=== PATIENT | female | born 2000 | race Caucasian/White ===

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

== ENCOUNTER 2021-04-20 17:35 | Outpatient (REF) | payer OTHER, SELFPAY ==
[2021-04-21 13:12] LABS: BV Int Neg Control Negative (Negative); BV Int Pos Control Positive (Positive)
== END 2021-04-20 17:36 | disposition home or self-care (01) ==
LOC: HO.LNP 17:35
PROVIDERS: Visit Provider Physician Assistant
DX: N89.8 Other specified noninflammatory disorders of vagina (principal)
CPT/HCPCS: 87480; 87510; 87660

== ENCOUNTER 2021-08-24 17:57 | Outpatient (REF) | payer OTHER, SELFPAY ==
[2021-08-24 18:52] LABS: Influenza A PCR NEGATIVE (Negative); Influenza B PCR NEGATIVE (Negative); Resp Syncy Virus RNA Qual PCR NEGATIVE (Negative); SARS COV2 PCR INHOUSE POSITIVE (Negative)
== END 2021-08-24 17:58 | disposition home or self-care (01) ==
LOC: HO.LNP 17:57
PROVIDERS: Visit Provider Pediatrics
DX: Z20.822 Contact with and (suspected) exposure to COVID-19 (principal); R09.89 Other specified symptoms and signs involving the circulatory and respiratory systems
CPT/HCPCS: 0241U

== ENCOUNTER 2021-09-27 13:46 | Outpatient (REF) | payer OTHER, SELFPAY ==
[2021-09-27 15:08] LABS: Syphilis Screen Nonreactive (Nonreactive)
[2021-09-28 07:07] LABS: HIV AB/AG Nonreactive (Nonreactive); HIV Num 1 0.06 S/CO (0.00-0.99)
== END 2021-09-27 13:47 | disposition home or self-care (01) ==
LOC: HO.LAB 13:46
PROVIDERS: PCP Physician Assistant; Visit Provider Pediatrics
DX: Z11.4 Encounter for screening for human immunodeficiency virus [HIV] (principal); Z72.51 High risk heterosexual behavior
CPT/HCPCS: 36415; 86780; 87389

== ENCOUNTER 2021-10-06 13:14 | Outpatient (REF) | payer OTHER, SELFPAY ==
[2021-10-06 15:51] LABS: CT PCR NOT DETECTED (Not Detect.); NG PCR NOT DETECTED (Not Detect.)
== END 2021-10-06 13:15 | disposition home or self-care (01) ==
LOC: HO.LAB 13:14
PROVIDERS: PCP Physician Assistant; Visit Provider Pediatrics
DX: Z11.3 Encounter for screening for infections with a predominantly sexual mode of transmission (principal)
CPT/HCPCS: 87491; 87591

== ENCOUNTER 2021-11-15 11:04 | Emergency (ER) | payer OTHER, SELFPAY ==
[2021-11-15 12:01] VITALS: BP 115/83; PULSE 75; RESP 14; TEMP 36.3; O2SAT 100; BMI 24.7
[2021-11-15 12:19] LABS: Appearance Urine Clear; Color Urine Yellow; Glucose Urine UA Negative (Negative); Leukocyte Esterase Urine Small (1+) (Negative); Nitrite Urine Negative (Negative); Urine Blood Negative (Negative); Urine Ketones Negative (Negative); Urine Protein Negative (Neg-Trace)
[2021-11-15 12:21] LABS: UPreg QC Valid YES; Urine Pregnancy NEGATIVE (NEGATIVE)
[2021-11-15 12:40] LABS: Bacteria Urine None Seen (None Seen); Hyaline Casts Urine 0-2 /LPF (0-2); RBC Urine 0-2 /HPF (0-2); UACC Culture Trigger YES; WBC Urine 0-5 /HPF (0-5)
--- NOTE | 2021-11-15 13:33 | ED_ITS ---
HPI - Female Genitourinary General Chief complaint: Abdominal Pain Stated complaint: pelvic pain vaginal bleeding Time Seen by Provider: 11/15/21 13:21 Source: patient Mode of arrival: ambulatory Limitations: no limitations History of Present Illness HPI Narrative: Patient presents emergency department for evaluation of pelvic discomfort. She states that 1.5 weeks ago was the start of her last menstrual period, she blood for 5 days which is slightly shorter than usual typically she bleeds for 1 week. About 4 days later she began having bleeding again for a couple of days. States that it is not usual for her to have bleeding between menstrual cycles. Uncertain whether she may be or not. She is also reporting pelvic discomfort. Feels as though she has a yeast infection which she has been james ting with boric acid, however states that this typically does not resolve her symptoms for greater than 2 days. Denies any odor, no concern for sexually transmitted infections, however she does report a new sexual partner within the past 3 weeks, and had testing 1 month ago. Denies fevers, chills, abdominal pain, nausea, vomiting constipation, diarrhea, flank pain, back pain, Related Data Previous Rx's Medication Instructions Recorded fluticasone propionate 50 1 spray intranasal DAILY 30 days 08/24/21 mcg/actuation nasal #15.8 mL spray,suspension (Children's Flonase Allergy Relief) fluconazole 150 mg tablet 150 mg PO Q3D 2 doses #2 tabs 11/15/21 (Diflucan) Allergies Allergy/AdvReac Type Severity Reaction Status Date / Time No Known Allergies Allergy Verified 08/24/21 16:16 Review of Systems Review of Systems: Constitutional: No weight loss, fever, chills, weakness or fatigue. Skin: No rash or itching. Cardiovascular: No chest pain, chest pressure or chest discomfort. No palpitations or pedal edema. Respiratory: No shortness of breath, cough or sputum production. Gastrointestinal: No nausea, vomiting or diarrhea. No abdominal pain Genitourinary: No burning micturition. No urinary frequency or incontinence. Positive pelvic pain. Musculoskeletal: No muscle pain, back pain, joint pain or stiffness. Psychiatric: No depression or anxiety. Yes all other systems are reviewed and are negative PMFSH Past Medical History Attestation statement: The following information was validated with the patient. Source: old records reviewed Medical History No pertinent past medical history Surgical History No pertinent past surgical history Family History Family History Mother Substance abuse Social History Social History Household Members: Family Housing: House Advance Directives: No Advance Directives Information Provided: No Cognitive needs: No Hearing needs: No Vision needs: No Physical Exam Vital Signs: Vital Signs: Last Vital Signs Temp 97.4 F 11/15/21 12:01 Pulse 75 11/15/21 12:01 Resp 14 11/15/21 12:01 BP 115/83 11/15/21 12:01 Pulse Ox 100 11/15/21 12:01 O2 Del Method 11/15/21 12:01 BMI result Body Mass Index 24.7 Appearance: Alert.?Oriented to person, place and time. No acute distress.?Normal affect. Eyes: Pupils equal, round and reactive to light.? ENT: Pharynx normal.?? Neck: Normal inspection.? Neck supple.?? CVS: Heart sounds normal. Normal heart rate and rhythm.? Pulses normal.?? Respiratory: No respiratory distress.? Lung sounds clear to auscultation bilaterally?? Abdomen: Soft and non-tender. Normoactive bowel sounds. Genitourinary: Declined pelvic examination Skin: Skin warm and dry.? Normal skin color.? Extremities: No lower extremity edema.? Neuro: Moves all extremities spontaneously. Sensation intact bilaterally. Ambulates with normal steady gait. Course Course Course Narrative: Patient is a 21-year-old female with no significant past medical history. She is overall well-appearing, abdominal exam is benign. Vital signs are stable, afebrile no tachycardia. Presents emergency department for evaluation of pelvic discomfort, irregular menstrual bleeding, concern for yeast infection. Exact date of last menstrual period is unknown but was at the beginning of this month. Urinalysis obtained today not consistent with urinary tract infection, no microscopic hematuria. Urine as well as serum hCG are negative. Expresses low concern for sexually transmitted infection, would like to be tested, but declines treatment at this time. Reports persistent symptoms of a vaginal yeast infection unrelieved with boric acid, discussed plan of care for discharge home with prescription for Diflucan 1 or 2 doses as needed for persistent symptoms. 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 Reviewed worrisome signs and symptoms to return back to the emergency department for. Advised repeating test in 2-3 weeks. Patient verbalized understanding, was discharged home in stable condition. MDM - Female Genitourinary Medical Records Attestation: I reviewed the patient's medical records. Lab Data Attestation: I reviewed the patient's lab results. Labs: Lab Results 11/15/21 11/15/21 11/15/21 Range/Units 12:07 12:07 13:56 Urine Color Yellow Urine Appearance Clear Urine pH 6.0 (5.0-9.0) Ur Specific [place] 1.020 (1.005-1.025) Urine Protein Negative (Neg-Trace) mg/dL Urine Glucose (UA) Negative (Negative) mg/dL Urine Ketones Negative (Negative) mg/dL Urine Blood Negative (Negative) Urine Nitrite Negative (Negative) Ur Leukocyte Esterase Small (1+) H (Negative) Urine RBC 0-2 (0-2) /HPF Urine WBC 0-5 (0-5) /HPF Ur Squamous Epith Cells 6-10 (0-2) /HPF Urine Bacteria None Seen (None Seen) Hyaline Casts 0-2 (0-2) /LPF Urine Test NEGATIVE (NEGATIVE) Chlam trachomat DNA PCR NOT DETECTED (Not Detect.) N.gonorrhoeae DNA (PCR) NOT DETECTED (Not Detect.) Discharge Plan Discharge Clinical Impression: Pelvic pain Patient Disposition: Home, Self-Care Instructions: Pelvic Pain in Women (ED) Additional Instructions: As we discussed, you have been given a prescription for Diflucan, this is to treat a vaginal yeast infection, it is a 1 time dose that you need to take, however if you are still having symptoms you may take a 2nd dose in 3 days. The testing results for bacterial vaginosis, yeast, hematuria, and gonorrhea he be available over the next couple of days. Should anything results as positive you will receive a call from the hospital. He was offered prophylactic treatment for sexually transmitted infections, how ever you declined at this time. You can take ibuprofen 200 mg, 3 tablets (600mg) every 6-8 hours as needed for pain, in addition to Tylenol 500 mg, 2 tablets (1,000mg) every 4-6 hours as needed for pain, but not to exceed 3 doses daily (3,000mg).? Please follow-up with your primary care provider/tennis ball cover cementer provider as needed. Return to the emergency department any new or worsening symptoms or concerns. Prescriptions: New fluconazole [Diflucan] 150 mg tablet 150 mg PO Q3D Qty: 2 0RF No Action fluticasone propionate [Children's Flonase Allergy Rlf] 50 mcg/actuation spray,suspension 1 spray intranasal DAILY 30 Days Qty: 15.8 2RF Rx Instructions: administer into each nostril Interventions: ED Discharge Assessment Last Done: 11/15/21 14:02 Discharge Date/Time: 11/15/21 14:06
[2021-11-15 15:57] LABS: CT PCR NOT DETECTED (Not Detect.); NG PCR NOT DETECTED (Not Detect.)
[2021-11-16 13:19] LABS: BV Int Neg Control Negative (Negative); BV Int Pos Control Positive (Positive)
== END 2021-11-15 14:06 | disposition home or self-care (01) ==
PROVIDERS: Nurse Practitioner Family; Emergency Provider Emergency Medicine; PCP Physician Assistant
DX: R10.2 Pelvic and perineal pain (principal); B37.3 Candidiasis of vulva and vagina
CPT/HCPCS: 81001; 81025; 87086; 87480; 87491; 87510; 87591; 87660; 99282; 99283

== ENCOUNTER 2021-11-22 14:42 | Outpatient (REF) | payer OTHER, SELFPAY | END 2021-11-22 14:43 | disposition home or self-care (01) | LOC: HO.LNP 14:42 | PROVIDERS: Visit Provider Obstetrics & Gynecology | DX: R10.2 Pelvic and perineal pain (principal); N76.0 Acute vaginitis; B96.89 Other specified bacterial agents as the cause of diseases classified elsewhere; R31.29 Other microscopic hematuria | CPT/HCPCS: 99202 ==

== ENCOUNTER 2021-11-22 14:52 | Outpatient (REF) | payer OTHER, SELFPAY ==
[2021-11-22 16:11] LABS: Syphilis Screen Nonreactive (Nonreactive)
[2021-11-23 01:27] LABS: CT PCR NOT DETECTED (Not Detect.); NG PCR NOT DETECTED (Not Detect.)
[2021-11-23 07:10] LABS: HBsAGNum1 0.24 S/CO (0.00-0.99); HIV AB/AG Nonreactive (Nonreactive); HIV Num 1 0.05 S/CO (0.00-0.99); Hepatitis B Surface Antigen Negative (Negative); ~HepC Num1 0.12 S/CO (0.00-0.79); ~Hepatitis C Antibody Nonreactive (Nonreactive)
== END 2021-11-22 14:53 | disposition home or self-care (01) ==
LOC: HO.LAB 14:52
PROVIDERS: Visit Provider Obstetrics & Gynecology
DX: Z11.4 Encounter for screening for human immunodeficiency virus [HIV] (principal); Z11.3 Encounter for screening for infections with a predominantly sexual mode of transmission; B96.89 Other specified bacterial agents as the cause of diseases classified elsewhere; N76.0 Acute vaginitis
CPT/HCPCS: 86780; 86803; 87086; 87340; 87389; 87491; 87591

== ENCOUNTER 2022-02-22 14:07 | Outpatient (REF) | payer OTHER, SELFPAY ==
--- NOTE | ~2022-02-22 | US_ITS ---
EXAMINATION: US PELVIS CLINICAL INFORMATION: Pelvic and perineal pain, last menstrual period 01/23/2022 COMPARISON: None. TECHNIQUE: Ultrasound of the pelvis is performed using both transabdominal and transvaginal transducers along with Doppler. Transvaginal imaging is performed due to inadequate visualization transabdominally. FINDINGS: The uterus measures 7.2 x 3.5 x 3.5 cm and is retropositioned. Uterus is heterogeneous. No discrete fibroids identified. Endometrium appears thickened with thickness of 1.6 cm. Moderate amount of free fluid in the pelvis, adjacent to the uterus and bilateral ovaries. Right ovary is unremarkable and measures 3.1 x 1.2 x 2.0 cm. Left ovary measures 2.9 x 1.8 x 2.7 cm, volume 7.4 mL. Left ovarian 1.8 x 1.8 x 1.8 cm cyst with diffuse internal echoes, appearing complex, possibly a corpus luteum. US/US pelvic and transvaginal IMPRESSION: Complex left ovarian cyst, possibly a corpus luteum. Moderate amount of free fluid in the pelvis adjacent bilateral ovaries and the uterus. Endometrial thickness 1.6 cm. Correlation with menstrual history recommended. Retropositioned uterus. Recommend follow-up ultrasound in 6-8 weeks. Gynecologic consultation recommended.
== END 2022-02-22 14:08 | disposition home or self-care (01) ==
LOC: HO.US 14:07
PROVIDERS: Visit Provider Obstetrics & Gynecology
DX: R10.2 Pelvic and perineal pain (principal)
CPT/HCPCS: 76830; 76856

== ENCOUNTER 2022-03-08 10:42 | Outpatient (REF) | payer OTHER, SELFPAY ==
[2022-03-08 17:06] LABS: CT PCR NOT DETECTED (Not Detect.); NG PCR NOT DETECTED (Not Detect.)
[2022-03-09 13:05] LABS: BV Int Neg Control Negative (Negative); BV Int Pos Control Positive (Positive)
== END 2022-03-08 10:43 | disposition home or self-care (01) ==
LOC: HO.LNP 10:42
PROVIDERS: PCP Neurological Surgery; Visit Provider Obstetrics & Gynecology
DX: Z11.3 Encounter for screening for infections with a predominantly sexual mode of transmission (principal); B96.89 Other specified bacterial agents as the cause of diseases classified elsewhere; N76.0 Acute vaginitis; R31.29 Other microscopic hematuria; N83.299 Other ovarian cyst, unspecified side
CPT/HCPCS: 81003; 81025; 87480; 87491; 87510; 87591; 87660; 99212

== ENCOUNTER 2022-04-07 10:58 | Outpatient (REF) | payer OTHER, SELFPAY ==
--- NOTE | ~2022-04-07 | US_ITS ---
EXAMINATION: US PELVIS CLINICAL INFORMATION: History of ovarian cyst; the last menstrual period was on 03/16/2021. COMPARISON: Pelvic ultrasound dated 02/22/2022. TECHNIQUE: Ultrasound of the pelvis is performed using both transabdominal and transvaginal transducers along with Doppler. Transvaginal imaging is performed due to inadequate visualization transabdominally. FINDINGS: Uterus: The uterus is anteverted and measures 6.1 x 3.4 x 3.3 cm. The uterus is retroverted and retroflexed. The double wall endometrial thickness is 8 mm. The uterus is smooth in contour and has normal myometrial echogenicity. No visible fibroid. Adnexa: Both ovaries are visualized. There is normal color flow to the adnexa. There is no ovarian torsion. There is a small amount of nonspecific free fluid within the cul-de-sac. Right ovary measures 3.9 x 1.9 x 2.4 cm, volume 9.3 mL. Small physiologic follicles are noted. Left ovary measures 3.0 x 1.0 x 1.4 cm, volume 2.2 mL. Small physiologic follicles are noted. US/US pelvic and transvaginal IMPRESSION: A small amount nonspecific free fluid is seen within the cul-de-sac. The examination is otherwise unremarkable.
== END 2022-04-07 10:59 | disposition home or self-care (01) ==
LOC: HO.US 10:58
PROVIDERS: Visit Provider Obstetrics & Gynecology
DX: N83.299 Other ovarian cyst, unspecified side (principal)
CPT/HCPCS: 76830; 76856

== ENCOUNTER → 2022-04-21 10:33 | Outpatient (BNVA) | payer OTHER, SELFPAY | PROVIDERS: PCP Nurse Practitioner Family; Visit Provider Obstetrics & Gynecology | DX: Z87.42 Personal history of other diseases of the female genital tract (principal) | CPT/HCPCS: 99212 ==

== ENCOUNTER 2022-07-21 09:12 | Outpatient (REF) | payer OTHER, SELFPAY | END 2022-07-21 09:13 | disposition home or self-care (01) | LOC: HO.LNP 09:12 | PROVIDERS: PCP Nurse Practitioner Family; Visit Provider Obstetrics & Gynecology | DX: Z01.419 Encounter for gynecological examination (general) (routine) without abnormal findings (principal) | CPT/HCPCS: 88142 ==

== ENCOUNTER 2022-07-21 09:49 | Outpatient (REF) | payer OTHER, SELFPAY ==
[2022-07-21 12:09] LABS: CT PCR NOT DETECTED (Not Detect.); NG PCR NOT DETECTED (Not Detect.)
[2022-07-22 03:07] LABS: Syphilis Screen Nonreactive (Nonreactive)
[2022-07-22 04:21] LABS: HBS Num1 27.18 mIU/mL (0-7.99); HIV AB/AG Nonreactive (Nonreactive); ~HepC Num1 0.15 S/CO (0.00-0.79); ~Hepatitis B Surface Antibody REACTIVE (Nonreactive); ~Hepatitis C Antibody Nonreactive (Nonreactive)
== END 2022-07-21 09:50 | disposition home or self-care (01) ==
LOC: HO.LAB 09:49
PROVIDERS: Visit Provider Obstetrics & Gynecology
DX: Z11.4 Encounter for screening for human immunodeficiency virus [HIV] (principal); B96.89 Other specified bacterial agents as the cause of diseases classified elsewhere; N76.0 Acute vaginitis
CPT/HCPCS: 0353U; 86706; 86780; 86803; 87389

== ENCOUNTER 2022-07-28 14:32 | Outpatient (REF) | payer OTHER, SELFPAY ==
[2022-07-29 10:55] LABS: BV Int Neg Control Negative (Negative); BV Int Pos Control Positive (Positive)
== END 2022-07-28 14:33 | disposition home or self-care (01) ==
LOC: HO.LNP 14:32
PROVIDERS: PCP Physician Assistant; Visit Provider Obstetrics & Gynecology
DX: Z11.3 Encounter for screening for infections with a predominantly sexual mode of transmission (principal)
CPT/HCPCS: 87480; 87510; 87660; 99212

== ENCOUNTER 2022-10-13 13:14 | Outpatient (REF) | payer OTHER, SELFPAY | END 2022-10-13 13:15 | disposition home or self-care (01) | LOC: HO.LAB 13:14 | PROVIDERS: Obstetrics & Gynecology; PCP Physician Assistant; Visit Provider Advanced Practice Midwife | DX: R10.2 Pelvic and perineal pain (principal); N89.8 Other specified noninflammatory disorders of vagina | CPT/HCPCS: 99212 ==

== ENCOUNTER 2022-10-13 13:14 | Outpatient (AMB) | payer OTHER, SELFPAY ==
[2022-10-13 13:15] VITALS: BP 110/72; BMI 27.2
--- NOTE | 2022-10-13 13:15 | MHC.OFFVIS ---
Intake Vital Signs 10/13/22 13:15 Height 5 ft 2 in Weight 149 lb BMI 27.2 BP 110/72 Intake Visit Reasons: recurrent bv Biology Professor Required: No Information Interpreted: non-clinical & clinical Facility Coordinator: Facility Coordinator Present (Felicita) Allergies No Known Allergies Allergy (Verified 10/13/22 13:18) Is last menstrual period known: Yes Last menstrual period: 10/02/22 HPI HPI Comments History of Present Illness Details She is here with complaints of reoccurring BV. States she has had BV in the past and returns in a week span. Two documented episode since 11/2021. An additional yeast dx. noted within the last year. Admits to vaginal discharge and odor. Denies pelvic pain. Currently sexually active and does not use any form of BC. LMP 10/02/22. Was on OCP in the past and believes it was going to make her infertile. 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 [employer] Cognitive needs: No Hearing needs: No Vision needs: No Female Reproductive History Menstrual Age of Menarche: 13 Date of last menstrual period: 10/02/22 Total pregnancies: 0 Physical Exam Vital Signs: Last Vital Signs BP 110/72 10/13/22 13:15 BMI result Body Mass Index 27.2 Const General: cooperative, healthy appearing, comfortable, no acute distress, well developed, alert and awake Other: General: Yes bladder normal to palpation External Female Exam: normal external appearance and normal appearance of the urethra Speculum Exam - Vagina: normal appearance of the vagina, normal palpation and abnormal vaginal discharge white Speculum Exam - Cervix: normal appearance of the cervix and normal palpation Bimanual exam- vagina & uterus: normal bimanual exam, normal palpation, bladder normal to palpation and normal palpation Bimanual Exam- Adnexa, other: normal adnexae and no masses Assessment & Plan Assessment & Plan (1) Vaginal discharge: Code(s): N89.8 - Other specified noninflammatory disorders of vagina Plan: Discussed: BV testing and GC/CT panel done today. Await results and treat accordingly. BV, pH imbalances, vaginal health. Use of condoms consistantly. Boric acid protocol explained and instructions given. Photo copy provided. Informed to not use Boric acid if . Encouraged patient to sign up for patient portal. All of her questions and concerns were addressed to the best of my ability and shared decision making. She is agreeable to plan of care. (2) control counseling: Code(s): Z30.09 - Encounter for other general counseling and advice on contraception Plan: Discussed: Different BC options including Nuva Ring. She opts to wait. Literature given. Advised to download Huber grace to monitor menses and ovulation. Encouraged to use condoms for STD and prevention. (3) Vaginal odor: Code(s): N89.8 - Other specified noninflammatory disorders of vagina Orders: Orders Bacterial Vaginosis Panel Today N89.8 - Other specified noninflammatory disorders of vagina CT NG by PCR Today N89.8 - Other specified noninflammatory disorders of vagina Coding Level of Care Code Est Pt Level 3 (02320) Diagnoses Vaginal discharge N89.8 control counseling Z30. Vaginal odor N89.8
== END 2022-10-13 13:43 | disposition home or self-care (01) ==
LOC: HO.HWS 13:14
PROVIDERS: PCP Physician Assistant; Visit Provider Advanced Practice Midwife
DX: N89.8 Other specified noninflammatory disorders of vagina (principal); Z30.09 Encounter for other general counseling and advice on contraception
CPT/HCPCS: 99213

== ENCOUNTER 2022-10-13 13:40 | Outpatient (REF) | payer OTHER, SELFPAY ==
[2022-10-13 18:49] LABS: CT PCR NOT DETECTED (Not Detect.); NG PCR NOT DETECTED (Not Detect.)
[2022-10-14 11:48] LABS: BV Int Neg Control Negative (Negative); BV Int Pos Control Positive (Positive)
== END 2022-10-13 13:41 | disposition home or self-care (01) ==
LOC: HO.LNP 13:40
PROVIDERS: Visit Provider Advanced Practice Midwife
DX: N89.8 Other specified noninflammatory disorders of vagina (principal); R31.29 Other microscopic hematuria
CPT/HCPCS: 0353U; 87480; 87510; 87660

== ENCOUNTER 2024-05-13 13:04 | Outpatient (REF) | payer OTHER, SELFPAY ==
--- OUTSIDE RECORDS SUMMARY | 2024-05-13 15:29 | XMS_ITS | Clinical Summary ---
Author Organization [employer] [facility] ity Address [address] [place] [address] Care Team Providers Care Missing Persons Investigator Name Role Phone Unavailable Primary Care Provider [...]
[2024-05-13 17:20] LABS: Bacterial Vaginosis PCR NEGATIVE (Negative); Candida Group PCR NOT DETECTED (Not Detect); Candida glab krusei PCR NOT DETECTED (Not Detect); Trichomonas vaginalis PCR NOT DETECTED (Not Detect)
[2024-05-13 17:50] LABS: CT PCR NOT DETECTED (Not Detect.); NG PCR NOT DETECTED (Not Detect.)
== END 2024-05-13 13:05 | disposition home or self-care (01) ==
LOC: HO.LAB 13:04
PROVIDERS: PCP Physician Assistant; Visit Provider Advanced Practice Midwife
DX: N76.0 Acute vaginitis (principal); Z30.09 Encounter for other general counseling and advice on contraception; B96.89 Other specified bacterial agents as the cause of diseases classified elsewhere
CPT/HCPCS: 81515; 87491; 87591; 99212

== ENCOUNTER 2024-05-13 13:04 | Outpatient (AMB) | payer OTHER, SELFPAY ==
--- NOTE | 2024-05-13 13:07 | MHC.OFFVIS ---
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 She feels like she gets it a lot she uses the boric acid. She gets regular periods she wonders if she can get just because she has not so far. She does not use control and is not interested in. She thinks it would be okay if she got . She knows we do not have a birthing center here. 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 She feels that her vagina often smells pungent. She does thinks she is dealing with it more and she sweats down there she has gained weight. 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 External Female Exam: normal external appearance and normal appearance of the urethra Speculum Exam - Vagina: normal appearance of the vagina and normal vaginal discharge Speculum Exam - Cervix: normal appearance of the cervix and Cervical os closed Results Reviewed Results Reviewed: Name: Casi Franz Age/Sex: 22/F Attending: Harmeet Hicks MD : 2000 Submitted by: Harmeet Hicks MD Copies to: Elo Hoffman MR #: [id number] Status: DEP REF Collected: 07/21/22 Location: [facility] Received: 07/26/22 Interpretation Satisfactory for evaluation. Negative for intraepithelial lesion or malignancy. Clinical Information LMP: 07/06/22 Previous PAP test: None Material Received ThinPrep-Cervical Copies To Elo Hoffman [address] [place] [address] [address]. [address] [place] [address] Harmeet Hicks MD [address] [place] [address] [address]. [address] [place] [address] Electronically Signed By: ROBERTO Sofia (ASC) 08/08/22 1315 The Pap Test is a screening procedure with the inherent possibility of both false negative and false positive results. Results should be interpreted in the context of historic and current clinical findings. Reliability of the Pap Test is enhanced by performing the test on a regular repetitive basis. Patient: Casi Franz Age/Sex: 22/F MR#: [id number] Page 1 of 1 Assessment & Plan Assessment & Plan (1) Bacterial vaginosis: Code(s): N76.0 - Acute vaginitis; B96.89 - Other specified bacterial agents as the cause of diseases classified elsewhere Category: Medical (2) Vaginal odor: Code(s): N89.8 - Other specified noninflammatory disorders of vagina Category: Medical (3) control counseling: Comment: Not interested in contraception. Education done on fertility awareness. Code(s): Z30. - Encounter for other general counseling and advice on contraception Category: Medical Plan Discussed BV and its recurrence at some length including the benefits of using condoms, and paying attention to anything that can upset are normal bacterial balance in our vagina is including intercourse and intercourse with different partners. Testing done for STIs today. At her request I am sending a prescription for metronidazole gel to the pharmacy. If she has a recurrence and uses the gel and feels that it did not work and wants to call in for the tablets if the test is positive we can honor that and fill a prescription. Education done about her cycle about how are discharge changes normally throughout the cycle discussed all the things that can change our vaginal odor including time of the month sexual activity as well as working out in various athletic clothing etc. Await test results. Education done about her cycle also in terms of educating her about her signs and symptoms of ovulation and what to watch for. Orders: Orders Bacterial Vaginosis Panel Today N89.8 - Other specified noninflammatory disorders of vagina CT NG by PCR Today N89.8 - Other specified noninflammatory disorders of vagina Medications: New metronidazole 0.75%(37.5mg/5gram) 1 appful vaginal BID 5 days 70 grams 0RF Coding Level of Care Code Est Pt Level 3 (47609) Diagnoses Bacterial vaginosis N76.0; B96.89 Vaginal odor N89.8 control counseling Z30.09
[2024-05-13 13:23] VITALS: BP 104/66; BMI 34.7
--- OUTSIDE RECORDS SUMMARY | 2024-05-13 14:43 | XMS_ITS | Clinical Summary ---
Author Organization [employer] [facility] ity Address [address] [place] [address] Care Team Providers Care Emergency Management Coordinator Name Role Phone Unavailable Primary Care Provider Unavailabl e Social History Tobacco Use Types Packs/Day Years Used Date Smoking Tobacco: Never Assessed Comments Unknown Sex and Gender Information Value Date Recorded Sex Assigned at Not on file Legal Sex Female 8:29 AM EST Gender Identity Not on file Sexual Orientation Not on file Plan of Treatment Health Maintenance Due Date Last Done Comments Gonorrhea/Chlamydia Screening 2001 HPV Vaccines (1 - 3-dose series) 2016 Meningococcal B Vacine (1 of 2 - Standard) 2017 DTaP,Tdap,and Td Vaccines (1 - Tdap) 2020 Hepatitis B Vaccines (1 of 3 - 19+ 3-dose series) 2020 Cervical Cancer Screening: P ap Smear 2022 COVID-19 Vaccine ( - 2023-2 5 season) 2023 Influenza Vaccine (#1) 2023 HIB Vaccines Aged Out No longer eligi ble based on patient's age to complete this topic Hepatitis A Vaccines Aged Out No long er eligible based on patient's age to complete this topic IPV Vaccines Aged Out No longer eligi ble based on patient's age to complete this topic MMR Vaccines Aged Out No longer eligi ble based on patient's age to complete this topic Meningococcal ACWY Vaccine Aged Out N o longer eligible based on patient's age to complete this topic Pneumococcal Vaccine: Pediat rics (0 to 5 Years) and At-Risk Patients (6 to 64 Years) Aged Out No longer eligible b ased on patient's age to complete this topic RSV Immunization Patients Un cristy 20 months Aged Out No longer eligible b ased on patient's age to complete this topic Varicella Vaccines Aged Out No longer eligible based on patient's age to complete this topic
== END 2024-05-13 14:52 | disposition home or self-care (01) ==
PROVIDERS: PCP Physician Assistant; Visit Provider Advanced Practice Midwife
DX: N76.0 Acute vaginitis (principal); B96.89 Other specified bacterial agents as the cause of diseases classified elsewhere; Z30.09 Encounter for other general counseling and advice on contraception
CPT/HCPCS: 99213

== ENCOUNTER 2024-05-13 13:42 | Outpatient (REF) | payer OTHER, SELFPAY | END 2024-05-13 13:43 | disposition home or self-care (01) | LOC: HO.LNP 13:42 | PROVIDERS: Visit Provider Advanced Practice Midwife | DX: Z13.89 Encounter for screening for other disorder (principal) ==

== ENCOUNTER 2025-02-19 13:33 | Outpatient (AMB) | payer OTHER, SELFPAY ==
--- NOTE | 2025-02-19 13:41 | A.OFFPC_ITS ---
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 HPI Details An annual physical was completed along with establishing care today Dentist: up to date Eye: up to date Snellen: Right: Left: Corrected vision:yes glasses STI screening: declines Colonoscopy:n/a Pap Smer: up to date PHQ-9: Flu:declines COVID: no Tdap: up to date Diet: regular Exercise: once a week goes the gym Previous PCP: [facility] Last visit: 2 years ago Last PE: same Specialist: OBGYN: [facility] Past medical history: Wear glasses Medications: none Family HX:n/a Problem: Patient reports persistent case of athlete's foot. Her previous primary care provider was her tribunal member, with her last visit occurring approximately two years ago. The patient reports having athlete's foot for a little while, characterized by itchiness and excessive sweating of the feet. She notes a history of skin peeling which has improved, and she has been self-treating with an [id number] antifungal powder. The patient denies any significant past medical history. She reports a single, past episode of blood in the urine, which she attributes to her menstrual cycle at the time. She does not take any regular medications and denies any known family medical history. 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 She denies seeing any other medical specialists. Health Maintenance - Dental exam: Patient had a dental visi t last month. - Eye exam: Patient had an eye exam this year and wears glasses. - Pap smear: Patient reports being up-to -date. - Immunizations: She has not received th e current season's influenza vaccine and declines it today. - She denies receiving a COVID vaccine. - Her tetanus vaccination is presumed to be up-to-date due to school requirements. - Lab work: Patient reports having blood work for HIV testing within the last two years but has not had comprehensive labs in a long time. 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 - Education: She is currently in school, studying psychology and taking Maldivian Sign Language (ASL) classes. - Exercise: The patient reports attempti ng to exercise, going to the gym approximately once a week, but reports a lack of motivation. - Diet: She follows a regular diet with no special restrictions. 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 1. Little interest or pleasure in doing things: more than half the days 2. Feeling down, depressed, or hopeless: not at all 3. Trouble falling or staying asleep, or sleeping too much: not at all 4. Feeling tired or having little energy: not at all 5. Poor appetite or overeating: several days 6. Feeling bad about yourself - or that you are a failure or have let yourself or your family down: not at all 7. Trouble concentrating on things, such as reading the newspaper or watching television: not at all 8. Moving or speaking so slowly that other people could have noticed. Or the opposite - being so fidgety or restless that you have been moving around a lot more than usual: not at all 9. Thoughts that you would be better off or of hurting yourself in some way: not at all Total score: 3 Source: Developed by Drs. Aakash Agosto, Aarti Garibay, Kyle Jamison and colleagues, with an educational kimberlee from [employer]. Thrive Questionnaire Date Thrive assessed: 02/19/25 I am a: Patient What is your living situation today?: I have a steady place to live Within the past 12 months, did the food you bought not last and you didn't have the money to get more?: Never true Within the past 12 months, did you worry whether your food would run out before you got money to buy more?: Never true Do you have trouble paying for medicines?: No Do you have trouble getting transportation to medical appointments?: No Do you have trouble paying your heating and electricity bill?: No Do you have trouble taking care of your child, family member or friend?: No Do you have trouble with day-to-day activities such as bathing, preparing meals, shopping, managing finances, etc.?: No Are you currently unemployed and looking for a job?: No Are you interested in more education?: Yes Please select the resources that you would like help with: None Currently or been in a relationship where the following occur: No concerns reported THRIVE Score: 0 AUDIT C Alcohol Use Questionnaire (AUDIT-C) 1. How often do you have a drink containing alcohol?: Monthly or less 2. How many drinks containing alcohol do you have on a typical day when you are drinking?: 3 or 4 3. How often do you have six or more drinks on one occasion?: Less than monthly Total Score: 3 NORA-7 AMB Questionnaire NORA-7 Date NORA - 7 assessed: 02/19/25 Feeling nervous, anxious, or on edge: 0 = Not at all Not being able to stop or control worryin = Not at all Worrying too much about different things: 0 = Not at all Trouble relaxin = Not at all Being so restless that it is hard to sit still: 0 = Not at all Becoming easily annoyed or irritable: 0 = Not at all Feeling afraid as if something awful might happen: 0 = Not at all Total NORA-7 score (0-4 normal; 5-9 mild; 10-14 moderate; 15-21 severe): 0 Source: Developed by Drs. Aakash Agosto, Aarti Garibay, Kyle Jamison and colleagues, with an educational kimberlee from [employer]. Review of Systems Const Denies headache(s) Eyes Denies loss of vision ENT Denies vertigo, Denies dizziness, Denies headache(s), Denies sore throat and Reports other (Ear itchiness) Card Denies chest pain, Denies leg edema and Denies lightheadedness Resp Denies cough, Denies hemoptysis and Denies wheezing GI Denies abdominal pain, Denies melena, Denies constipation, Denies diarrhea and Denies vomiting Denies urinary frequency, Denies dysuria and Denies urinary urgency Musc Denies arthralgias, Denies joint swelling, Denies numbness and Denies tingling Skin/Breast Reports other (Reports itchy and sweaty feet with a history of peeling skin.) Neuro Denies Abnormal speech present, Denies behavioral changes, Denies vertigo, Denies dizziness, Denies headache(s), Denies loss of vision, Denies memory loss, Denies numbness and Denies tingling Psych Denies anxiety, Denies behavioral changes, Denies depression, Denies memory loss and Denies panic attacks Jhonathan/Lymph Denies easy bleeding and Denies easy bruising Aller/Immun Denies wheezing Physical exam (Primary Care) Vital Signs: Last Vital Signs Temp 97.3 F 02/19/25 13:42 Pulse 73 02/19/25 13:42 Resp 18 02/19/25 13:42 BP 116/58 L 02/19/25 13:42 Pulse Ox 98 02/19/25 13:42 Oxygen Delivery Method Room Air 02/19/25 13:42 BMI result Body Mass Index 32.6 Tobacco/Smoking Status: Tobacco use Status Tobacco use date assessed 02/19/25 02/19/25 13:44 Patient Tobacco Use Status Never used Tobacco 02/19/25 13:44 PHQ-9: PHQ-9 Score PHQ-9: Total score 3 02/19/25 14:09 Thrive Assessment: Date of Thrive Assessment Date Thrive assessed 02/19/25 02/19/25 13:44 Currently or been in a relationship where the following occur: No concerns reported Const General: healthy appearing, no acute distress, alert and awake Nutritional Appearance: well nourished Orientation/consciousness: oriented to person, oriented to place and oriented to time HENMT Ears: Abnormal EAC present cerumen impaction bilateral General nose exam: Normal nasal mucous membranes and turbinates present Eyes Conjunctivae: conjunctivae normal Sclerae: sclerae normal Pupils: Equal, round and reactive pupils present Neck Neck: Yes no lymphadenopathy and Yes no JVD Thyroid: Thyroid normal Carotids: no bruits Resp Effort & Inspection: normal respiratory effort and not tachypneic Auscultation: no crackles, no rales, no rhonchi and no wheezes Cardio Rate: regular rate Rhythm: regular rhythm Heart sounds: no murmurs and normal S1 and S2 GI Palpation (GI): Soft to palpation, nontender, no hepatomegaly and no splenomegaly Auscultation: normal bowel sounds General: Yes no CVA tenderness Back/Spine/Pelvis Back: no CVA tenderness Skin General skin exam: dry skin Rashes: rashes noted ( sweaty feet ) Neuro General: oriented to person, oriented to place and oriented to time Cranial nerves: Yes Equal, round and reactive pupils present Speech: No Abnormal speech present Gait exam (Neuro): Normal gait present Motor exam (neuro): no tremor noted Extrem Right upper extremity: full ROM Left upper extremity: full ROM Right lower extremity: full ROM; no edema Left lower extremity: full ROM; no edema Psych Mental Status: mental status grossly normal Speech and movement: Normal speech and movement present Affect: normal affect Attitude: cooperative Thought process: Normal thought process present Coding Level of Care Code New Pt Prev Care [id number]([id number] Diagnoses Annual physical exam Z00.00 Tinea pedis of both feet B35.3 Laterality: bilateral Bilateral impacted cerumen H61.23 Laterality: bilateral Time Spent (min) 37 Assessment & Plan Assessment & Plan (1) Annual physical exam: Code(s): Z00.00 - Encounter for general adult medical examination without abnormal findings Category: Medical (2) Tinea pedis: Code(s): B35.3 - Tinea pedis Category: Medical Qualifiers: Laterality: bilateral Qualified Code(s): B35.3 - Tinea pedis (3) Cerumen impaction: Code(s): H61.20 - Impacted cerumen, unspecified ear Category: Medical Qualifiers: Laterality: bilateral Qualified Code(s): H61.23 - Impacted cerumen, bilateral Plan Plan Patient was informed and verbally consented to the use of an ambient scribe for clinic note documentation during this visit. 1. Tinea Pedis The patient's self-treatment with an antifungal powder is appropriate for managing her symptoms. An antifungal cream will be prescribed as an alternative treatment option. 2. Annual Physical Examination This visit will serve as the patient's annual physical. A comprehensive, fasting lab panel will be ordered to screen kidney function, liver function, thyroid function, and cholesterol levels. The patient's health maintenance screenings, including dental, eye, and Pap smear, are up to date. Will schedule a follow-up appointment for her next annual physical in one year. 3. Cerumen Impaction The patient was counseled on proper ear hygiene. She was advised against using Q-tips, as they can push cerumen further into the ear canal, potentially causing pain or dizziness. Recommended letting water run into the ears during a shower to soften wax and cleaning only the external part of the ear with a washcloth. Discussion Notes I informed the patient that her self-treatment for athlete's foot with antifungal powder was appropriate and also prescribed an antifungal cream as an alternative. I explained the rationale for ordering a comprehensive, fasting blood panel to establish a baseline for her overall health, including kidney, liver, thyroid, and cholesterol function. I advised her against using Q-tips in her ears, detailing the risks of cerumen impaction, and recommended safer alternatives for ear hygiene. We reviewed her health maintenance status, confirming she is up-to-date on dental, eye, and gynecological exams. I converted this visit to her annual physical and will arrange for a follow-up in one year. I informed her that I would contact her only if the lab results are abnormal. Patient Instructions - I have sent a prescription for an antifungal cream for your athlete's foot to your pharmacy. - Please get the blood work done that we ordered. - Remember to fast (nothing to eat or drink except water) for 8 to 12 hours bef ore the test. - Do not use Q-tips inside your ears. - To clean your ears, you can let shower water run into them and then gently wipe the outside. - We will contact you if your lab results are concerning. - We will book an appointment for your next annual physical in one year. Orders: Orders Comprehensive [place]. Panel Fast 02/19/25 Z00.00 - Encounter for general adult medical examination without abnormal findings Lipid Panel 02/19/25 Z00.00 - Encounter for general adult medical examination without abnormal findings TSH reflex Free T4 02/19/25 Z00.00 - Encounter for general adult medical examination without abnormal findings Vitamin D 25-OH Total 02/19/25 Z00.00 - Encounter for general adult medical examination without abnormal findings Complete Blood Count Auto Diff 02/19/25 Z00.00 - Encounter for general adult medical examination without abnormal findings UA CC w/rflx Micro + Cult 02/19/25 Z00.00 - Encounter for general adult medical examination without abnormal findings Medications: New terbinafine HCl 1% 1 appl topical BID 30 grams 3RF
[2025-02-19 13:42] VITALS: BP 116/58; PULSE 73; RESP 18; TEMP 36.3; O2SAT 98; BMI 32.6
--- OUTSIDE RECORDS SUMMARY | 2025-02-19 18:08 | XMS_ITS | Clinical Summary ---
Author Organization [employer] [facility] ity Address [address] [place] [address] Care Team Providers Care Second Baker Name Role Phone Unavailable Primary Care Provider [...] (1 - 3-dose series) 2016 Meningococcal B Vaccine (1 o f 2 - Standard) 2017 DTaP,Tdap,and Td Vaccines (1 - Tdap) 2020 Hepatitis B Vaccines (1 of 3 - 19+ 3-dose series) 2020 Cervical Cancer Screening: P ap Smear 2022 Depression Screening 03/06/2024 COVID-19 Vaccine (1 - 2024-2 6 season) 2024 Influenza Vaccine (#1) 2024 RSV Immunization Adult Patie nts (1 - 1-dose 75+ series) 2076 HIB Vaccines Aged Out No longer eligi [...] 5 Years) and At-Risk Patients (6 to 49 Years) Aged Out No longer eligible b ased on patient's age to complete this topic RSV Immunization Patients Un cristy 20 months Aged Out No longer eligible b ased on patient's age to complete this topic Varicella Vaccines Aged Out No longer eligible based on patient's age to complete this topic
== END 2025-02-19 14:29 | disposition home or self-care (01) ==
DX: Z00.00 Encounter for general adult medical examination without abnormal findings (principal); B35.3 Tinea pedis; H61.23 Impacted cerumen, bilateral

== ENCOUNTER → 2025-02-19 13:33 | Outpatient (BNVA) | payer OTHER, SELFPAY | DX: Z00.00 Encounter for general adult medical examination without abnormal findings (principal); B35.3 Tinea pedis; H61.23 Impacted cerumen, bilateral | CPT/HCPCS: 99385 ==